=== PATIENT | male | born 1990 | race Hispanic/Latino ===

== ENCOUNTER 2018-05-02 22:30 | Emergency (ER) | payer MEDICAID, OTHER ==
[2018-05-02 23:27] LABS: BILIRUBIN,URINE Negative (NEGATIVE); COLOR,URINE Yellow (YELLOW); GLUCOSE, URINE (UA) Negative (NEGATIVE); KETONES,URINE Negative (NEGATIVE); LEUKOCYTE ESTERASE ,URINE Negative (NEGATIVE); NITRATE,URINE Negative (NEGATIVE); OCCULT BLOOD,URINE Negative (NEGATIVE); PROTEIN,URINE Negative (NEGATIVE)
[2018-05-02 23:28] LABS: APPEARANCE,URINE CLEAR (CLEAR)
== END 2018-05-02 23:55 | disposition home or self-care (01) ==
LOC: EDH 22:30
DX: A64 Unspecified sexually transmitted disease (principal); N49.8 Inflammatory disorders of other specified male genital organs
CPT/HCPCS: 81003; 87486; 87797; 96372